=== PATIENT | female | born 1970 | race Caucasian/White ===

== ENCOUNTER 2017-06-10 06:15 | Emergency (ER) | payer MEDICAID, OTHER ==
[~2017-06-10] VITALS: Ht 160 cm; Wt 97.4 kg
[2017-06-10 06:55] LABS: HEMATOCRIT 44.2 % (34.6-47.8); WHITE BLOOD COUNT 15.2 x10^3/uL (3.4-10)
[2017-06-10] MEDS ORDERED: morphine SULFATE 10 MG/ML, 1ML ONE (07:00)
[2017-06-10] MEDS ORDERED: FAMOTIDINE 20 MG/2 ML IVP ONE (07:00)
[2017-06-10] MEDS ORDERED: ONDANSETRON 2MG/ML, 2ML ONE (07:00)
[2017-06-10] MEDS ORDERED: SODIUM CHLORIDE 0.9% 1,000ML IVBOLUS ONE (07:00)
[2017-06-10] MEDS ORDERED: MAALOX/HYOSCYAMINE/LIDOCAINE 45 ML BTL ONE (07:00)
[2017-06-10] MEDS ORDERED: ONDANSETRON 2MG/ML, 2ML IVPush ONE (07:00)
[2017-06-10] MEDS ORDERED: MAALOX/HYOSCYAMINE/LIDOCAINE 45 ML BTL PO ONE (07:00)
[2017-06-10] MEDS ORDERED: MORPHINE SULFATE 4 MG/ML, 1ML IVPush PRN (07:00)
[2017-06-10] MEDS ORDERED: SODIUM CHLORIDE FLUSH 10ML SYR IVF ONE (07:00)
[2017-06-10] MEDS ORDERED: FAMOTIDINE 20 MG/2 ML ONE (07:01)
[2017-06-10 07:08] LABS: BLOOD UREA NITROGEN 12 mg/dL (7-18)
[2017-06-10] MEDS ORDERED: PROMETHAZINE 25 MG/ML, 1ML ONE (08:10)
[2017-06-10] MEDS ORDERED: KETOROLAC 30 MG/1 ML IVPush ONE (08:30)
[2017-06-10] MEDS ORDERED: PROMETHAZINE 25 MG/ML, 1ML IM ONE (08:30)
[2017-06-10] MEDS ORDERED: KETOROLAC 30 MG/1 ML ONE (08:32)
[2017-06-10 09:14] VITALS: BP 115/68
== END 2017-06-10 09:18 | disposition home or self-care (01) ==
LOC: ED 06:43
DX: K52.9 Noninfective gastroenteritis and colitis, unspecified (principal); E86.0 Dehydration; Z87.891 Personal history of nicotine dependence; Z90.710 Acquired absence of both cervix and uterus
CPT/HCPCS: 36415; 80048; 82040; 85025; 96361; 96372; 96374; 96375; 99285; J1885; J2405; J2550; J7030; S0028